=== PATIENT | male | born 1990 | race Caucasian/White ===

== ENCOUNTER 2021-11-04 20:19 | Inpatient (IN) | payer OTHER ==
[~2021-11-04 20:19] MED LIST: LORazepam 2 MG/ML SDV VIAL IM ONE
[2021-11-04] MEDS ORDERED: LORazepam 2 MG/ML SDV VIAL ONE (20:24)
[2021-11-04] MEDS ORDERED: NICOTINE POLACRILEX 2 MG GUM BUC PRN (20:26)
[2021-11-04] MEDS ORDERED: BISMUTH SUBSALICYLATE 524 MG/30 ML PO PRN (20:26)
[2021-11-04] MEDS ORDERED: MENTHOL/PHENOL 1 EACH UD MM PRN (20:26)
[2021-11-04] MEDS ORDERED: hydrOXYzine PAMOATE 25 MG CAPSULE (FP) PO PRN (20:26)
[2021-11-04] MEDS ORDERED: MAG HYDROX/AL HYDROX/SIMETH 30 ML UNIT-DOSE CUP PO PRN (20:26)
[2021-11-04] MEDS ORDERED: IBUPROFEN 400 MG TABLET (FP) PO PRN (20:26)
[2021-11-04] MEDS ORDERED: ONDANSETRON *ODT* 4 MG TABLET SL PRN (20:26)
[2021-11-04] MEDS ORDERED: MAGNESIUM CITRATE 300 ML BOTTLE PO PRN (20:26)
[2021-11-04] MEDS ORDERED: MAGNESIUM HYDROX 2400MG/30ML ORAL SUSPENSION 30 ML CUP PO PRN (20:26)
[2021-11-04] MEDS ORDERED: METHOCARBAMOL 500 MG TABLET PO PRN (20:26)
[2021-11-04] MEDS ORDERED: ACETAMINOPHEN 325 MG TABLET (FP) PO PRN ×2 (20:26)
[2021-11-04] MEDS ORDERED: chlordiazePOXIDE HCL 25 MG CAPSULE PO PRN (20:37)
[2021-11-04] MEDS ORDERED: MELATONIN 5 MG TABLETS PO SCH (22:00)
[2021-11-04] MEDS ORDERED: THIAMINE HCL 100 MG TABLET (FP) PO SCH (22:00)
[2021-11-04 23:34] VITALS: BMI 23.7
[2021-11-05] MEDS: chlordiazePOXIDE HCL 25 MG CAPSULE PO SCH ×3 (00:10→10:22)
[2021-11-05] MEDS ORDERED: PRENATAL VITAMINS W/ FOLIC ACID TABLET (FP) PO SCH (10:00)
[2021-11-05] MEDS ORDERED: NICOTINE 14 MG/24 HOURS TOPICAL PATCH TD SCH (10:00)
[2021-11-05] MEDS ORDERED: hydrOXYzine PAMOATE 25 MG CAPSULE (FP) PO PRN (10:14)
[2021-11-05 13:07] VITALS: BP 130/83; PULSE 80; TEMP 99
[2021-11-05 13:14] LABS: HEMATOCRIT 43.8 % (35.4-49); HEMOGLOBIN 14.9 GM/dL (11.7-16.9); MCH 29.5 pg (25.7-33.7); MEAN CELL VOLUME 86.8 fl (80-96); MEAN PLT VOLUME 8.7 fl (7.5-11.1); PLATELET COUNT 245 10^3/uL (134-434); RBC 5.04 M/mm3 (4.00-5.60); WHITE BLOOD COUNT 6.1 K/mm3 (4.0-10.0)
[2021-11-05 13:35] LABS: CALCIUM 8.8 mg/dL (8.5-10.1)
[2021-11-05 13:36] LABS: ALBUMIN 3.5 g/dl (3.4-5.0)
[2021-11-05 13:40] LABS: TOT PROT 6.5 g/dl (6.4-8.2)
[2021-11-05 13:41] LABS: BILIRUBIN,TOTAL 0.6 mg/dL (0.2-1)
[2021-11-05] MEDS ORDERED: MELATONIN 5 MG TABLETS PO SCH (22:00)
[2021-11-06] MEDS ORDERED: chlordiazePOXIDE HCL 25 MG CAPSULE PO SCH (05:00)
[2021-11-07] MEDS ORDERED: chlordiazePOXIDE HCL 10 MG CAPSULE PO PRN
[2021-11-07] MEDS ORDERED: chlordiazePOXIDE HCL 10 MG CAPSULE PO SCH (05:00)
[2021-11-08] MEDS ORDERED: chlordiazePOXIDE HCL 10 MG CAPSULE PO SCH (05:00)
[2021-11-09] MEDS ORDERED: chlordiazePOXIDE HCL 10 MG CAPSULE PO ONE (05:00)
== END 2021-11-05 15:35 | disposition left against medical advice (07) | DRG 770 ==
LOC: YASAS 20:19 → Y3N 23:05
PROVIDERS: ADMIT Allergy & Immunology; ATTEND Allergy & Immunology
PROC: HZ2ZZZZ Detoxification Services for Substance Abuse Treatment (ICD-10-PCS; principal; 2021-11-04)
DX: F10.230 Alcohol dependence with withdrawal, uncomplicated (principal); F10.220 Alcohol dependence with intoxication, uncomplicated; F10.282 Alcohol dependence with alcohol-induced sleep disorder; F10.280 Alcohol dependence with alcohol-induced anxiety disorder; F17.210 Nicotine dependence, cigarettes, uncomplicated; F90.9 Attention-deficit hyperactivity disorder, unspecified type; R00.0 Tachycardia, unspecified; Z86.69 Personal history of other diseases of the nervous system and sense organs; Z62.810 Personal history of physical and sexual abuse in childhood
CPT/HCPCS: 36415; 80053; 85027; 86780; 93005; 93010; C9803; U0003; U0005

== ENCOUNTER 2023-10-17 20:28 | Emergency (ER) | payer OTHER ==
[2023-10-17 20:41] VITALS: BP 139/87; PULSE 81; RESP 18; TEMP 98.3; BMI 23.6
[2023-10-17] MEDS ORDERED: traMADol HCL 50 MG TABLET PO ONE (21:51)
[2023-10-17] MEDS ORDERED: traMADol HCL 50 MG TABLET ONE (21:57)
[2023-10-17] MEDS ORDERED: LIDOCAINE 2.5%/PRILOCAINE 2.5% (5 Gram/TUBE) TP ONE (21:58)
== END 2023-10-17 22:57 | disposition home or self-care (01) ==
LOC: JER 20:28 → JERFT 20:28
PROC: 2W3JX1Z Immobilization of Right Finger using Splint (ICD-10-PCS; principal; 2023-10-17)
DX: S61.312A Laceration without foreign body of right middle finger with damage to nail, initial encounter (principal); Y93.G1 Activity, food preparation and clean up; Y92.9 Unspecified place or not applicable
CPT/HCPCS: 99283-25

== ENCOUNTER 2023-10-21 16:48 | Emergency (ER) | payer OTHER ==
[2023-10-21 16:53] VITALS: BP 128/84; PULSE 74; RESP 16; TEMP 98.3; BMI 24.3
== END 2023-10-21 18:02 | disposition home or self-care (01) ==
LOC: JERFT 16:48
DX: S61.213D Laceration without foreign body of left middle finger without damage to nail, subsequent encounter (principal); Z48.01 Encounter for change or removal of surgical wound dressing; X58.XXXD Exposure to other specified factors, subsequent encounter
CPT/HCPCS: 99282-25

== ENCOUNTER 2024-07-08 19:20 | Emergency (ER) | payer OTHER ==
[2024-07-08 19:52] VITALS: BP 127/85; PULSE 95; RESP 18; TEMP 98.3; BMI 25.1
[2024-07-08] MEDS ORDERED: NAPROXEN 500 MG TABLET ONE (20:55)
[2024-07-08] MEDS ORDERED: DEXAMETHASONE SOD PHOSPHATE 10 MG/1 ML VIAL ONE (20:55)
[2024-07-08] MEDS: DEXAMETHASONE SOD PHOSPHATE 10 MG/1 ML VIAL IM ONE (20:58)
[2024-07-08] MEDS: NAPROXEN 500 MG TABLET PO ONE (20:58)
== END 2024-07-08 21:07 | disposition home or self-care (01) ==
LOC: JERFT 19:20
DX: M54.42 Lumbago with sciatica, left side (principal)
CPT/HCPCS: 99284-25; J1100